=== PATIENT | female | born 2005 | race Two or more races ===

== ENCOUNTER 2023-09-06 13:44 | Outpatient (CLI) | payer OTHER, SELFPAY | END 2023-09-06 13:45 | disposition home or self-care (01) | LOC: NFLDREF 09-07 03:25 | PROVIDERS: Visit Provider Physician Assistant | DX: N92.0 Excessive and frequent menstruation with regular cycle (principal); R10.9 Unspecified abdominal pain; R10.33 Periumbilical pain | CPT/HCPCS: 87086; 87186 ==